=== PATIENT | female | born 1945 | race Caucasian/White ===

== ENCOUNTER → 2020-04-29 | Outpatient (CLI) | payer MEDICARE, OTHER ==
[~2020-04-29] MED LIST: ACYCLOVIR400 MG PO; BENICAR HCT 201 EACH PO; LEVOTHYROXINE150 MCG PO; LORAZEPAM0.5 MG PO; LUTEIN6 M1 PO; PREMARIN0.9 MG PO
--- NOTE | 2020-04-30 12:05 | Diagnostic Imaging Report ---
MRI SPINE LUMBAR WO HISTORY: Lumbar radiculopathy, right leg pain COMPARISON: None. TECHNIQUE: Sagittal T1, sagittal T2, sagittal STIR, axial T2, coronal T2, and axial proton density weighted images of the lumbar spine were obtained without contrast. DISCUSSION: Number of non-rib bearing lumbar vertebral bodies: 5. Alignment: Normal lordosis. Subtle thoracolumbar levoscoliosis is present. Vertebrae: No fractures, infection or neoplasm. Conus medullaris: Normal, ends at L1. Cauda equina: No masses or arachnoiditis. Posterior paraspinal muscles: Well preserved. There is mild paraspinal muscle edema in the lower lumbar spine. Soft tissues: Small T2 hyperintense lesion in the right kidney is most likely a cyst. Moderate multilevel disc degeneration is most prominent at L3-L4. There are nonspecific mild inflammatory endplate changes at L3-L4. T12-L1: Patent canal and foramina. L1-L2: Mild right foraminal stenosis due to disc bulge and facet arthrosis. No significant canal or left foraminal stenosis. L2-L3: Moderate canal stenosis due to disc bulge and ligamentum flavum thickening. Both lateral recesses are effaced. Mild to moderate right foraminal stenosis due to disc bulge and facet arthrosis. No significant left foraminal stenosis. L3-L4: Moderate canal stenosis due to disc bulge and ligamentum flavum thickening. Both lateral recesses are effaced. Mild to moderate bilateral foraminal stenoses due to disc bulge and facet arthrosis. L4-L5: Minimal grade 1 anterolisthesis of L4 on L5 is due to bilateral L4-L5 facet arthrosis. Moderate to severe canal stenosis is due to uncovered disc bulge and ligamentum flavum thickening. Both lateral recesses are effaced. Mild right and mild to moderate left foraminal stenoses due to uncovered disc bulge and facet arthrosis. L5-S1: Minimal grade 1 anterolisthesis of L5 on S1 is due to bilateral L5-S1 facet arthrosis. Moderate to severe canal stenosis due to uncovered disc bulge and ligamentum flavum thickening. Both lateral recesses are effaced. Mild to moderate right and moderate left foraminal stenoses due to uncovered disc bulge and facet arthrosis. IMPRESSION: 1. Moderate multilevel disc degeneration, most prominent at L3-L4 with nonspecific mild inflammatory endplate changes. There is subtle thoracolumbar levoscoliosis. 2. Minimal grade 1 anterolisthesis of L4 on L5 and L5 on S1 are due to facet arthrosis. 3. Multilevel degenerative canal stenoses - moderate to severe at L4-L5 and L5-S1. 4. Mild to moderate multilevel bilateral degenerative foraminal stenoses as described above. Signed by: Dr. Ryan Melvin M.D. on 04/30/2020 12:01 PM
== END ==
LOC: MRI 14:28
PROVIDERS: ATTEND Anesthesiology
DX: M54.16 Radiculopathy, lumbar region (principal)
CPT/HCPCS: 72148

== ENCOUNTER → 2020-06-18 | Outpatient (CLI) | payer MEDICARE, OTHER | LOC: CARD 09:42 | PROVIDERS: ATTEND Ophthalmology | DX: G45.3 Amaurosis fugax (principal) | CPT/HCPCS: 93880 ==